=== PATIENT | female | born 1955 | race Caucasian/White ===

== ENCOUNTER 2017-12-01 14:03 | Emergency (ER) | payer BC ==
[2017-12-01] MEDS ORDERED: IPRATROPIUM-ALBUTEROL 3 ML NEB INHALATION STA (14:28)
[2017-12-01] MEDS ORDERED: methylPREDNISolone SOD SUCCI 125 MG/2 ML VIAL IV STA (14:28)
[2017-12-01 15:01] LABS: Basophils % (A) 1 %; Eosinophils # (A) 0.1 k/uL (0-0.7); Eosinophils % (A) 2 %; HCT 40.8 % (34.0-46.0); HGB 12.9 gm/dL (11.4-16.0); Lymphocytes % (A) 32 %; MCH 26.8 pg (25.0-35.0); MCHC 31.6 g/dL (31.0-37.0); MCV 84.7 fL (80.0-100.0); Mean Platelet Volume 7.4; Monocytes # (A) 0.3 k/uL (0-1.0); Monocytes % (A) 9 %; Neutrophils # (A) 1.8 k/uL (1.3-7.7); Neutrophils % (A) 55 %; Platelet Count 199 k/uL (150-450); RBC 4.82 m/uL (3.80-5.40); RDW 14.1 % (11.5-15.5); WBC 3.3 k/uL (3.8-10.6)
[2017-12-01 15:10] LABS: ALT 48 U/L (9-52); AST 51 U/L (14-36); Albumin 3.7 g/dL (3.5-5.0); Alkaline Phosphatase 73 U/L (38-126); Anion Gap 11 mmol/L; Blood Urea Nitrogen 14 mg/dL (7-17); Calcium 8.8 mg/dL (8.4-10.2); Carbon Dioxide 28 mmol/L (22-30); Chloride 101 mmol/L (98-107); Glucose 98 mg/dL (74-99); Sodium 140 mmol/L (137-145); Total Bilirubin 0.3 mg/dL (0.2-1.3)
[2017-12-01] MEDS ORDERED: POTASSIUM CHLORIDE ER 20 MEQ TAB.ER PO STA (15:31)
[2017-12-01] MEDS ORDERED: OSELTAMIVIR 75 MG CAP PO STA (15:31)
--- NOTE | 2017-12-01 15:33 | XR ---
EXAMINATION TYPE: XR chest 2V DATE OF EXAM: 12/01/2017 COMPARISON: NONE HISTORY: Difficulty in breathing. TECHNIQUE: Frontal and lateral views of the chest are obtained. FINDINGS: There is no focal air space opacity, pleural effusion, or pneumothorax seen. The cardiac silhouette size is within normal limits. There is some multilevel spurring in the lower thoracic spin e. IMPRESSION: No acute cardiopulmonary process.
--- NOTE | 2017-12-01 15:35 | XR ---
EXAMINATION TYPE: XR soft tissue neck DATE OF EXAM: 12/01/2017 COMPARISON: Same day a two-view chest x-ray. HISTORY: Difficulty breathing and globus sensation in throat TECHNIQUE: 2 views of soft tissue neck are acquired. FINDINGS: There is no suspicious prevertebral soft tissue swelling. Region of epiglottis and vallecul a appear within normal limits. Hypopharyngeal airway shows no suspicious narrowing seen better on the chest x-ray. No radiodense foreign body is clearly identified. Incidental note is made of mild to mo derate spurring and disc space narrowing C5-C6 level. IMPRESSION: As above
--- NOTE | 2017-12-01 15:45 | ED ---
SOB HPI - General Chief Complaint: Shortness of Breath Stated Complaint: SOB-sent by [email or web address] Time Seen by Provider: 12/01/17 14:13 Source: patient Mode of arrival: ambulatory Limitations: no limitations - History of Present Illness Initial Comments: This 62-year-old white female presents with a complaint of some difficulty in breathing. This seemed to start yesterday. She has had a cough without any significant production. She's had some mild nasal congestion. She states that it seems as though she is having a difficult time breathing as they are gets stuck in her lower neck. [facility] to arrival and they sent her over for further evaluation. She did receive a breathing treatment to their facility with some minimal relief. She denies any fevers or chills. She has had some diffuse myalgias. No other complaints or modifying factors. - Related Data Home Medications Medication Instructions Recorded Confirmed DULoxetine HCL [Cymbalta] 60 mg PO DAILY 12/01/17 12/01/17 FLUoxetine HCL [PROzac] 60 mg PO DAILY 12/01/17 12/01/17 L.acidoph,Paracasei, B.lactis 1 cap PO DAILY 12/01/17 12/01/17 [Probiotic] Multivit with Calcium,Iron,Min 1 tab PO DAILY 12/01/17 12/01/17 [Women's Multivitamin] Potassium 99 mg PO DAILY 12/01/17 12/01/17 Vitamin D3(Unknown Dose) 1 tab PO DAILY 12/01/17 12/01/17 Vitamin E 1,000 unit PO DAILY 12/01/17 12/01/17 Previous Rx's Medication Instructions Recorded Albuterol Sulfate [Proair Hfa] 2 puff INHALATION Q6HR PRN #1 12/01/17 inhaler Oseltamivir [Tamiflu] 75 mg PO Q12HR #10 cap 12/01/17 predniSONE 20 mg PO BID #10 tab 12/01/17 Allergies Allergy/AdvReac Type Severity Reaction Status Date / Time diphenhydramine Allergy Rash/Hives Verified 12/01/17 15:12 [From Benadryl] Review of Systems ROS Statement: Those systems with pertinent positive or pertinent negative responses have been documented in the HPI. ROS Other: All systems not noted in ROS Statement are negative. Past Medical History Past Medical History: No Reported History History of Any Multi-Drug Resistant Organisms: None Reported Past Surgical History: Hernia Repair, Hysterectomy, Tonsillectomy Additional Past Surgical History / Comment(s): bariatric bypass Past Psychological History: Depression Smoking Status: Never smoker Past Alcohol Use History: Occasional Past Drug Use History: None Reported General Exam - General Exam Comments Initial Comments: GENERAL: The patient is well nourished and well hydrated. VITAL SIGNS: Heart rate, blood pressure, respiratory rate reviewed as recorded in nurse's notes. EYES: Pupils are round and reactive. Extraocular movements are intact. No conjunctival / lid redness or swelling. ENT: No external evidence of injury, swelling, or ecchymosis. Airway is patent. Throat is clear. NECK: Nontender. No swelling or evidence of injury. No subcutaneous emphysema. Trachea is midline. No thyroid mass. HEART: Regular rate and rhythm. Good peripheral pulses. LUNGS/CHEST: There is some minimal wheezing noted bilaterally. There is some decreased inspiratory effort noted. No ecchymosis, subcutaneous emphysema, or tenderness. ABDOMEN: Abdomen soft without tenderness. No palpable masses or organomegaly. No peritoneal signs. No abdominal wall swelling or ecchymosis. EXTREMITIES: No extremity tenderness. Normal muscle tone and function. No thoracolumbar tenderness. NEUROLOGIC: Sensation is grossly intact. Cranial nerve exam reveals face is symmetrical, tongue is midline, speech is clear. SKIN: No abrasions or ecchymosis is noted. No induration or masses noted. PSYCHIATRIC: Alert and oriented. Appropriate behavior and judgment. Limitations: no limitations Course Vital Signs 12/01/17 12/01/17 12/01/17 14:05 14:45 15:03 Temperature 99.8 F H Pulse Rate 95 95 111 H Respiratory 20 18 18 Rate Blood Pressure 158/83 O2 Sat by Pulse 96 Oximetry Medical Decision Making - Medical Decision Making The patient was seen and examined. All diagnostics were reviewed. The x-ray of the soft tissue neck and chest x-ray did not show any acute process. The patient received a double DuoNeb breathing treatment as well as some Solu- Medrol intravenously. She is feeling much improved on recheck. Some Tylenol and Tamiflu also is ordered. She had a positive influenza B test as well as some slight hypokalemia. She is given a potassium pill in the ER and is counseled regarding hypokalemia. She appears well for discharge home at this time. She is counseled regarding her diagnosis in detail leaves in no distress. - Lab Data Result diagrams: 12/01/17 14:35 12/01/17 14:35 Lab Results 12/01/17 12/01/17 12/01/17 Range/Units 14:35 14:35 14:35 WBC 3.3 L (3.8-10.6) k/uL RBC 4.82 (3.80-5.40) m/uL Hgb 12.9 (11.4-16.0) gm/dL Hct 40.8 (34.0-46.0) % MCV 84.7 (80.0-100.0) fL MCH 26.8 (25.0-35.0) pg MCHC 31.6 (31.0-37.0) g/dL RDW 14.1 (11.5-15.5) % Plt Count 199 (150-450) k/uL Neutrophils % 55 % Lymphocytes % 32 % Monocytes % 9 % Eosinophils % 2 % Basophils % 1 % Neutrophils # 1.8 (1.3-7.7) k/uL Lymphocytes # 1.0 (1.0-4.8) k/uL Monocytes # 0.3 (0-1.0) k/uL Eosinophils # 0.1 (0-0.7) k/uL Basophils # 0.0 (0-0.2) k/uL Sodium 140 (137-145) mmol/L Potassium 3.0 L* (3.5-5.1) mmol/L Chloride 101 (98-107) mmol/L Carbon Dioxide 28 (22-30) mmol/L Anion Gap 11 mmol/L BUN 14 (7-17) mg/dL Creatinine 0.61 (0.52-1.04) mg/dL Est GFR (MDRD) Af Amer >60 (>60 ml/min/1.73 sqM) Est GFR (MDRD) Non-Af >60 (>60 ml/min/1.73 sqM) Glucose 98 (74-99) mg/dL Calcium 8.8 (8.4-10.2) mg/dL Total Bilirubin 0.3 (0.2-1.3) mg/dL AST 51 H (14-36) U/L ALT 48 (9-52) U/L Alkaline Phosphatase 73 (38-126) U/L Total Protein 6.0 L (6.3-8.2) g/dL Albumin 3.7 (3.5-5.0) g/dL Influenza Type A RNA Not Detected (Not Detectd) Influenza Type B (PCR) Detected H (Not Detectd) Disposition Clinical Impression: Influenza, Dyspnea, Hypokalemia, Bronchospasm Disposition: HOME SELF-CARE Condition: Good Instructions: Bronchospasm (ED), Influenza (ED) Additional Instructions: Please use Motrin and/or Tylenol as needed for any fever or chills. Prescriptions: Albuterol Sulfate [Proair Hfa] 2 puff INHALATION Q6HR PRN #1 inhaler PRN Reason: Shortness Of Breath Or Wheezing Oseltamivir [Tamiflu] 75 mg PO Q12HR #10 cap predniSONE 20 mg PO BID #10 tab Referrals: Jourdan Pickard MD [Primary Care Provider] - 1-2 days Time of Disposition: 15:44
[2017-12-01 15:55] VITALS: BP 144/72; PULSE 113; RESP 24; TEMP 98.9
== END 2017-12-01 15:58 | disposition home or self-care (01) ==
LOC: EC 14:03
DX: J98.01 Acute bronchospasm (principal); E87.6 Hypokalemia; J10.1 Influenza due to other identified influenza virus with other respiratory manifestations; F32.9 Major depressive disorder, single episode, unspecified; Z79.899 Other long term (current) drug therapy; Z88.8 Allergy status to other drugs, medicaments and biological substances
CPT/HCPCS: 36415; 94640; 80053; 85025; 87040; 87502; 70360; 71046; 99285; 96374; J2930

== ENCOUNTER 2018-06-26 08:37 | Emergency (ER) | payer OTHER, BC ==
[2018-06-26] MEDS ORDERED: DIPH,PERTUS(ACELL)TETVAC-LF 0.5 ML VIAL IM ONE (08:48)
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
[2018-06-26] MEDS ORDERED: ENALAPRILAT 1.25 MG/ML 1 ML VIAL IVP STA ×2 (09:58→10:58)
[2018-06-26 10:21] LABS: Basophils % (A) 0 %; Eosinophils # (A) 0.1 k/uL (0-0.7); Eosinophils % (A) 2 %; HCT 43.3 % (34.0-46.0); HGB 13.7 gm/dL (11.4-16.0); Lymphocytes # (A) 1.6 k/uL (1.0-4.8); Lymphocytes % (A) 20 %; MCH 26.5 pg (25.0-35.0); MCHC 31.7 g/dL (31.0-37.0); MCV 83.6 fL (80.0-100.0); Mean Platelet Volume 7.5; Monocytes # (A) 0.4 k/uL (0-1.0); Monocytes % (A) 5 %; Neutrophils # (A) 5.6 k/uL (1.3-7.7); Neutrophils % (A) 72 %; Platelet Count 296 k/uL (150-450); RBC 5.18 m/uL (3.80-5.40); WBC 7.9 k/uL (3.8-10.6)
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
[2018-06-26 11:15] LABS: Anion Gap 4 mmol/L; Blood Urea Nitrogen 13 mg/dL (7-17); Calcium 9.4 mg/dL (8.4-10.2); Carbon Dioxide 28 mmol/L (22-30); Chloride 106 mmol/L (98-107); Glucose 100 mg/dL (74-99); Potassium 3.9 mmol/L (3.5-5.1); Sodium 138 mmol/L (137-145)
[2018-06-26 11:34] VITALS: RESP 18
[2018-06-26] MEDS ORDERED: ORPHENADRINE 30 MG/ML 2 ML VIAL IVP STA (11:35)
[2018-06-26 11:49] VITALS: BP 138/90; PULSE 74
[2018-06-26 11:56] VITALS: TEMP 98
== END 2018-06-26 11:50 | disposition home or self-care (01) ==
LOC: EC 08:37
DX: S50.311A Abrasion of right elbow, initial encounter (principal); M79.89 Other specified soft tissue disorders; I10 Essential (primary) hypertension; F32.9 Major depressive disorder, single episode, unspecified; Z79.899 Other long term (current) drug therapy; Z88.8 Allergy status to other drugs, medicaments and biological substances; Z23 Encounter for immunization; Z53.8 Procedure and treatment not carried out for other reasons; V49.49XA Driver injured in collision with other motor vehicles in traffic accident, initial encounter; Y93.89 Activity, other specified; Y92.410 Unspecified street and highway as the place of occurrence of the external cause
CPT/HCPCS: 36415; 93005; 80048; 85025; 73070; 71045; 72125; 70450; 90715; 99285; 96374; 96375; 90471; J2360

== ENCOUNTER → 2018-07-02 | Outpatient (CLI) | payer OTHER ==
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
== END | disposition home or self-care (01) ==
LOC: RADCTMAIN 18:54
PROVIDERS: ATTEND Family Medicine
DX: M79.89 Other specified soft tissue disorders (principal)
CPT/HCPCS: 70450